=== PATIENT | female | born 1975 | race Caucasian/White ===

== ENCOUNTER 2021-08-24 01:41 | Day surgery (SDC) | payer OTHER, SELFPAY ==
[2021-08-21 13:09] VITALS: BMI 33.0
--- NOTE | 2021-08-21 13:12 | PC.NURSE ---
Report to the Outpatient Waiting Room, entrance under the green pavilion located off [facility], at time __1000 on date ___08/24/21____. OR Time: ___1200 . - You and your visitor will be asked a series of questions to screen for COVID 19 for your protection. - A mask is required within the hospital. - Only one visitor is allowed at this time. Patient visitors will be guided where to wait when not with patient. Preoperative COVID Testing Requirements: No COVID Test needed if: (proof is required; if not received patient will have Rapid Test prior to entry) - Patient has received COVID Vaccine at least 14 days prior to procedure date or - Patient has positive COVID test result within last 90 days of surgery date. COVID Test needed if above criteria is not met If not COVID vaccinated a COVID test must be conducted within 72 hours of surgery and patient is asked to isolate self from time of testing until procedure. You will go to the [facility] for your COVID testing. The [facility] is located at the corner of [address] [facility]. You will only be called if COVID results are positive and your surgeon may reschedule your elective surgery date. Patients may have clear liquids (water, carbonated beverages, clear teas, apple juice) until 3 hours prior to surgery with a maximum of 20 ounces. - No food from midnight until time of surgery - Infants may have breast milk until 4 hours before surgery, infant formula 6 hours prior to surgery. - Children will be allowed to drink immediately following surgery. If applicable, please bring a bottle or sippy cup to assist with drinking. Juice, water, soda, and popsicles are readily available. For infants on formula, please bring formula the day of surgery. Pacifiers are allowed. Take the following medications with a SIP of water the morning of surgery: ____N/A Medications to discontinue per physician N/A Date to take last dose Please no make-up, nail stateless, hairspray, perfume, deodorant, or body powder the day of surgery. No jewelry (including any body piercings) or valuables the day of surgery, leave them at home. Please take a shower or bath the night before, or the morning of, surgery with an antibacterial soap. Wear comfortable, loose fitting clothing. Children are encouraged to wear pajamas. - Jewelry must be removed prior to entering the operating room. Rings and piercings that are not removed may be cut off. - The hospital will not accept responsibility for valuables. - Please leave all valuables, including medications, at home the day of surgery. If you are going home after surgery, a licensed driver/refuse collector must drive you home. - NO public transportation without another adult. - We recommend that an adult stay with you for 24 hours following discharge. - We also recommend that you do not drive, make important decision, drink alcoholic beverages, or take any drugs that were not prescribed by your health care provider for at least 24 hours after your discharge time. For Pediatric surgeries, we recommend two adults accompany the child home (only one inside the building at this time). Follow any additional instructions given to you from your surgeon. Telephone instructions given to __PT and asked if any additional questions and then verbalized understanding. Patient advised to call surgeon office or pre surgery nurse liaison [phone] if any additional questions.
--- NOTE | 2021-08-23 08:39 | PM.IMHP ---
H&P: HPI History of Present Illness Date/Time: 08/23/21 08:39 Chief Complaint: Abnormal uterine bleeding Narrative: 46 yo F who presents for hysteroscopy, D&C, polypectomy and endometrial ablation. Pt was complaining of frequent heavy menses. Pelvic US suggested possible endometrial polyp. Pt desires endometrial ablation to improve heavy menses. Pt has tried hormonal contraceptives in the past. Pt has had a tubal ligation for sterilization. Review of Systems Cardiovascular: Cardiovascular: Denies chest pain, Denies leg edema, Denies palpitations, Denies dyspnea and Denies dyspnea on exertion Respiratory: Respiratory: Denies cough, Denies dyspnea and Denies dyspnea on exertion Gastrointestinal: Gastrointestinal: Denies abdominal pain, Denies constipation, Denies diarrhea, Denies nausea and Denies vomiting Genitourinary: Genitourinary: Denies hematuria, Denies urinary frequency, Denies dysuria, Denies pelvic pain, Denies urinary incontinence and Denies vaginal discharge Neurologic: Reports system reviewed and no additional complaints, except as documented Psychiatric: Psychiatric: Reports no additional psychiatric complaints Endocrine: Endocrine: Denies palpitations [facility]LY [facility], [facility] Social History Social History Smoking status: Never smoker Second hand tobacco smoke exposure: No Alcohol intake: never Substance use: never Substance use type: does not use Living arrangements: with family Spiritual care concerns: No Meds Home Medications and Allergies Home Medications Medication Instructions Recorded Confirmed Type No Home Medications 08/21/21 08/21/21 History Allergies Allergy/AdvReac Type Severity Reaction Status Date / Time butorphanol AdvReac Unknown FACIAL Verified 08/21/21 13:08 ITCHING Exam Const: General: no acute distress Eyes: EOM: EOMs intact bilaterally Neck: Neck: supple Thyroid: thyroid normal Chest: Breast/axilla inspection: normal inspection of the breasts Breast/axilla palpation: normal palpation of the breasts, normal palpation of the axillae and no axillary lymphadenopathy Resp: Effort & Inspection: normal respiratory effort Auscultation: clear to auscultation bilaterally Cardio: Rate: regular rate Rhythm: regular rhythm GI: Inspection: non-distended GI Palp: Yes Soft to palpation, No Tenderness to palpation present (GI) and No Guarding due to palpation present (GI) Auscultation: normal bowel sounds : General: No bladder normal to palpation External Female Exam: normal external appearance Speculum Exam - Vagina: normal vaginal discharge and No vaginal bleeding Speculum Exam - Cervix: nontender Bimanual exam- vagina & uterus: No bladder normal to palpation and No Cervical tenderness present OB/external & speculum: No vaginal bleeding Skin: General skin exam: normal color and no rashes or lesions noted Neuro: Cognition (Neuro): normal cognition Speech: normal speech Extrem: General: normal to inspection and no edema Psych: Mental Status: mental status grossly normal Affect: normal affect Assessment and Plan Assessment and plan (1) Abnormal uterine bleeding (AUB): Code(s): N93.9 - Abnormal uterine and vaginal bleeding, unspecified Status: Acute Assessment and Plan: pt c/o heavy irregular menses pt has tried medical management in the past pt has had tubal ligation for contraception desires surgical management via endometrial ablation (2) Uterine polyp: Code(s): N84.0 - Polyp of corpus uteri Status: Acute Assessment and Plan: pelvic US showed localized thickened endometrium measuring 1.2x0.6 cm suggestive of a polyp pt having bothersome irregular bleeding will plan hysteroscopy and polypectomy
--- NOTE | 2021-08-24 10:07 | WPDANESEPPF ---
Anes - Initial Pre Proc Eval Procedure: Operation Date: 08/24/21 12:00 Proposed Procedures p Hysteroscopy Dilation and Curettage, Polypectomy with Myosure, Endometrial Ablation using Alicia - Alfredo Lebron MD Date/Time: 08/24/21 10:07 Surgeon: Alfredo Lebron MD Pre Op Diagnosis: abnormal uterine bleeding Patient Data Age: 46 Gender: F Height: 1.57 m Weight: 81.81 kg Allergies Allergy/AdvReac Type Severity Reaction Status Date / Time butorphanol AdvReac Unknown FACIAL Verified 08/24/21 10:04 ITCHING Home Medications Medication Instructions Recorded Confirmed Type No Home Medications 08/21/21 08/21/21 History Patient hx anesthesia problems: none Family hx anesthesia problems: none Results Review: All pre-operative results and documents have been reviewed as part of the pre-operative evaluation. [facility] Past Medical History Medical History (Updated 08/24/21 @ 10:07 by Oseas Garza MD) Abnormal uterine bleeding (AUB) Obesity Social History Social History Smoking status: Never smoker Second hand tobacco smoke exposure: No Alcohol intake: never Substance use: never Substance use type: does not use Living arrangements: with family Spiritual care concerns: No Anes - Eval Final PreProcedure Day of Procedure 08/24/21 10:07 Patient weight: obese Heart: regular rate and rhythm Lungs: clear to auscultation and normal air movement Airway: Mallampati scale class II Neurological: alert and oriented Last oral intake: >/= 8 hours ASA classification: II Emergent: no Anesthetic plan: proceed Anesthesia type and monitoring: general GIVS and LMA Results Review: All pre-operative results and documents have been reviewed as part of the pre-operative evaluation. Informed Consent: The patient's anesthetic plan and its attendant risks and benefits were discussed with the patient/family/POA. Questions were solicited and answers provided to the satisfaction of the patient/family/POA.
--- NOTE | 2021-08-24 10:34 | WPDHPUPDATE1 ---
History and Physical Update Update Date/Time: 08/24/21 10:34 History and Physical has been reviewed, including an updated exam of the patient. There are NO changes in the patient's condition. Risks, benefits, and alternatives have been discussed and questions answered. Patient agrees to proceed with procedure.
[2021-08-24 10:50] VITALS: BP 136/82; PULSE 75; TEMP 35.9; O2SAT 99
[2021-08-24] MEDS: LACTATED RINGERS 1,000 ML 30 ML IV CONT (10:54)
[2021-08-24] MEDS: ACETAMINOPHEN 500 MG TABLET 1000 MG PO (10:54)
[2021-08-24 11:01] VITALS: BP 136/82; PULSE 75; TEMP 35.9; O2SAT 99
--- NOTE | 2021-08-24 12:38 | W.PM.PROC2 ---
Procedure Note - Detailed Date of Procedure 08/24/21 Pre-op Diagnosis abnormal uterine bleeding Post-op Diagnosis same Procedure Performed paracervical block hysteroscopy dilation & curettage Surgeon Alfredo Lebron MD Anesthesia general Indications abnormal uterine bleeding Findings globally thickened intrauterine cavity. Normal tubal ostia bilaterally Description of Procedure Patient was counseled as to the indications, risks, benefits, and alternatives to surgery, with the risks including bleeding, infection, damage to surrounding organs, VTE, and complications of anesthesia. Her verbal and written consent was obtained. PROCEDURE: The patient was taken to the OR and general anesthesia induced. She was prepped and draped in Tj stirrups with support of the back and bilateral lower extremities. I/O catheterization performed of the bladder. The above findings were noted. Infiltration with 1% lidocaine at the 3 and 9 o'clock cervical positions was performed. A single tooth tenaculum was placed on the anterior lip of the cervix. The cervix was dilated with sequential Marta dilators. Hysteroscopy, using a normal saline medium, was performed and showed the above findings. The endometrial lining was visualized and found to be globally thickened. The Myosure device was then used to sample the endometrial lining, restoring a normal appearing endometrial cavity. The tissue was sent to pathology. Sharp uterine curettage was then performed and tissue placed on Telfa. The uterine cavity was then measured under direct visualization with the hysteroscope. The total length of the uterus was noted to be 7.5cm. The cervical length was measured in the same fashion and noted to be 2.5 cm, making the uterine cavity 5 cm. The Aylin device was then set to 5.0 cm. The aylin device was placed in the uterus and the device was deployed in the usual fashion. Gentle pressure was applied to seat the device at the uterine fundus. The device was thought to be fully deployed and the cavity width was within the acceptable range. The cervical seal balloon was then inflated. The device was activated and a cavity assessment was performed and passed. The device was then activated. The endometrial ablation was performed for 120 seconds. After the ablation was finished, the cervical balloon was deflated and the device was removed from the uterus. Repeat hysteroscopy was performed to confirm adequate tissue ablation. The tenaculum was removed and hemostasis was observed. The patient tolerated the procedure well. Sponge, lap, and needle counts were correct. The patient had SCD's on throughout the case for VTE prophylaxis. The patient was taken to the recovery room in stable condition. Urine Output 150 Drains No Packing No Pathology yes (endometrial curettings ) Complications No immediate complications Condition stable Disposition PACU
[2021-08-24 12:40] VITALS: BP 129/80; PULSE 77; RESP 16; O2SAT 98
[2021-08-24] MEDS: fentaNYL CITRATE INJ (*CRX) 100 MCG/2 ML VIAL 25 MCG IV PUSH ×2 (13:03→13:15)
[2021-08-24 13:10] VITALS: BP 136/79; PULSE 70; RESP 16
[2021-08-24 13:40] VITALS: BP 123/77; PULSE 62; RESP 16
--- NOTE | 2021-08-24 13:58 | SUR.PHASEII ---
PT DRESSED AND IN W/C TO GO HOME. C/O NAUSEA. RECEIVED ORDER FROM DR SHEPPARD FOR [facility]
[2021-08-24] MEDS: ONDANSETRON HCL ODT 4 MG TABLET SUBLINGUAL (14:00)
--- NOTE | 2021-08-24 14:31 | SUR.PHASEII ---
1403; PT STATES SHE WANTS TO GO HOME.
== END 2021-08-24 14:03 | disposition home or self-care (01) ==
PROVIDERS: PCP Family Medicine; Visit Provider Student in an Organized Health Care Education/Training Program
PROC: 0U5B8ZZ Destruction of Endometrium, Via Natural or Artificial Opening Endoscopic (ICD-10-PCS; CPT 58563; principal; 2021-08-24 12:00)
DX: N93.9 Abnormal uterine and vaginal bleeding, unspecified (principal); N80.0 Endometriosis of uterus; E66.9 Obesity, unspecified; Z68.32 Body mass index [BMI] 32.0-32.9, adult
CPT/HCPCS: 58558; 88305; A9270; J2250; J2270; J2405; J2704; J3010; J7030; J7120

== ENCOUNTER 2024-04-18 10:10 | Outpatient (CLI) | payer OTHER, SELFPAY ==
--- NOTE | ~2024-04-18 | XR_ITS ---
XR lumbar spine 2-3V DATE: 04/18/2024 10:34 INDICATION: Low back pain TECHNIQUE: Standing AP and lateral and coned lateral lumbosacral views COMPARISON: None FINDINGS: There is mild levoscoliosis of the lower thoracic and lumbar spine. There is mild to moderate loss of height at L2-3 interspace with minimal spurring. There is severe degenerative disc disease at L4-5 and L5-S1. No fracture or bone destruction is evident. The included lower thoracic and lumbar pedicles are intac t. No spondylolisthesis is noted. Normal sacroiliac joints. Incidentally noted is a prominent amount of fecal material in the right colon. Status post cholecystectomy. Approximately 7 mm nodular density overlying the right lung base. PA and lateral chest regressed shalini mmended. IMPRESSION: Multilevel degenerative disc disease, severe at L4-5 and L5-S1 Reviewed, dictated and finalized at location J.
--- NOTE | ~2024-04-18 | XR_ITS ---
XR thoracic spine 2V DATE: 04/18/2024 10:34 INDICATION: Neck pain, back pain TECHNIQUE: Standing AP and lateral views COMPARISON: 04/18/2024 cervical spine FINDINGS: There is minimal mid thoracic dextroscoliosis. There is minimal degenerative spurring of the thoracic spine. The thoracic pedicles are intact. No fr acture, dislocation or bone destruction. No paraspinal soft tissue thickening. Surgical clips, right upper quadrant, consistent with cholecystectomy Approximately 4.5 mm nodular density overlying the right upper lung; this may be present retrospectiv delores on 10/18/2018. IMPRESSION: Minimal mid thoracic dextro scoliosis Minimal degenerative spurring Approximately 4.5 mm nodular density overlying the right upper lung field possibly present retrospect ively on October 18, 2018; PA and lateral chest radiographs are recommended. Reviewed, dictated and finalized at [facility] J. IMPRESSION: Minimal mid thoracic dextro scoliosis Minimal degenerative spurring Approximately 4.5 mm nodular density overlying the right upper lung field possi quinn present retrospectively on October 18, 2018; PA and lateral chest radiogra phs are recommended.
--- NOTE | ~2024-04-18 | XR_ITS ---
XR cervical spine 4-5V DATE: 04/18/2024 10:34 INDICATION: Neck pain TECHNIQUE: AP, open-mouth, lateral, swimmer's and bilateral oblique views COMPARISON: None FINDINGS: C1 and C2 are normally aligned and the odontoid process is intact. No fracture or dislocati on or locked facet or prevertebral soft tissue swelling. Cervical interspaces are well preserved. No bony encroachment is evident upon the neural foramina. IMPRESSION: Negative Reviewed, dictated and finalized at location J. IMPRESSION: Negative
--- NOTE | ~2024-04-18 | XR_ITS ---
XR pelvis 1-2V DATE: 04/18/2024 10:34 INDICATION: Sacroiliac pain TECHNIQUE: Standing AP view COMPARISON: None FINDINGS: The sacral iliac joints are intact, without evidence of erosive change or ankylosis were ge nerated joint space narrowing or sclerosis. The pubic symphysis is intact. Moderately severe degenerative disc disease is noted L4-5 and L5-S1. IMPRESSION: Unremarkable sacroiliac joints Reviewed, dictated and finalized at location J.
== END 2024-04-18 10:11 ==
PROVIDERS: PCP Chiropractor; Visit Provider Chiropractor
DX: M51.36 Other intervertebral disc degeneration, lumbar region (principal); M51.37 Other intervertebral disc degeneration, lumbosacral region; M41.84 Other forms of scoliosis, thoracic region; M25.78 Osteophyte, vertebrae
CPT/HCPCS: 72050; 72070; 72100; 72170

== ENCOUNTER 2024-04-22 07:05 | Outpatient (CLI) | payer OTHER, SELFPAY ==
--- NOTE | ~2024-04-22 | XR_ITS ---
EXAMINATION: XR chest 2V 04/22/2024 08:40 INDICATION: Lung nodule PROCEDURE: 2 view chest COMPARISON: 10/18/2018 FINDINGS: The lungs are clear. The cardiomediastinal silhouette is within normal limits. There are no pleural effusions. There is no pneumothorax suspected. IMPRESSION: 1: NO ACUTE CARDIOPULMONARY DISEASE. Reviewed, dictated and finalized at location B.
== END 2024-04-22 07:06 ==
PROVIDERS: PCP Nurse Practitioner Family; Visit Provider Chiropractor
DX: R91.1 Solitary pulmonary nodule (principal)
CPT/HCPCS: 71046